=== PATIENT | female | born 1990 | race Caucasian/White ===

== ENCOUNTER 2022-01-26 14:55 | Emergency (ER) | payer OTHER ==
[~2022-01-26] VITALS: Ht 172.7 cm; Wt 90.7 kg
[2022-01-26] MEDS ORDERED: hydrOXYzine HCL INJ 25 MG/ML VIAL IM STA (14:57)
[2022-01-26] MEDS ORDERED: HYDR50TA61 PO (15:03)
--- NOTE | 2022-01-26 15:59 | NUR ---
VISTARIL NOT AVAILABLE PER PHARMACY, DR VANN MADE AWARE.
[2022-01-26] MEDS ORDERED: LORAZEPAM 1 MG TABLET PO ONE (16:00)
--- NOTE | 2022-01-26 16:03 | NUR ---
DR VANN W/ ORDER FOR ATIVAN 1MG PO, ORDER NOTED AND VERIFIED
[2022-01-26] MEDS ORDERED: LORAZEPAM 1 MG TABLET ONE (16:04)
--- NOTE | 2022-01-26 16:22 | NUR ---
[facility] ETA 90 MINUTES
--- NOTE | 2022-01-26 19:00 | NUR ---
EMT AT BEDSIDE TO PICKUP PT
[2022-01-26 19:11] VITALS: BP 138/68
== END 2022-01-26 19:11 | disposition home or self-care (01) ==
LOC: ER 14:58
DX: F11.13 Opioid abuse with withdrawal (principal); F32.A Depression, unspecified; F17.200 Nicotine dependence, unspecified, uncomplicated; Z88.0 Allergy status to penicillin; Z79.899 Other long term (current) drug therapy; Z59.00 Homelessness unspecified
CPT/HCPCS: J3410